=== PATIENT | female | born 2000 | race Caucasian/White ===

== ENCOUNTER 2022-01-24 08:25 | Outpatient (CLI) | payer OTHER ==
[2022-01-24 09:08] VITALS: BP 124/75
--- NOTE | 2022-01-24 09:08 | SLEEP CARE CONSULTATION ---
Information from patient questionnaire entered by Cricket Arguelles MA. I have reviewed and concur with the information entered by Cricket Arguelles MA. This document represents the service I personally performed and the decisions made by , Catalina Reddy ARNP. History of Present Illness Service Date and Time: 01/24/2022 0825 Reason for Visit: New patient (ONSET 12/2019, NO PRIORS,) Accompanied by: Mother Chief Complaint: reports: Unrefreshed sleep, Snoring, Excessive daytime sleepiness, Fatigue, Frequent awakenings at night Date of Onset: 2 YEARS Usual bedtime: 1100 PM Time it takes to fall asleep: 45 MINUTES Snores at night: Yes Observed to quit breathing while asleep: Yes Sleeps alone due to snoring: No Number of times waking at night: 1-2 Reasons for waking at night: reports: Snoring (sometimes), Other (unknown reason). denies: Choking, Gasping for air Toss, Turn, or Twitch while sleeping: Yes Recalls having dreams: Yes Usually gets out of bed at: 0730 Feels refreshed in the morning: No Morning headache: No Sleepy or fatigued during the day: Yes Ever fallen asleep while driving: No Takes day naps: No Dreams during day naps: Yes Prior sleep studies: No Additional HPI information: I had the pleasure of seeing YEE PEREZ today regarding the possibility of her having a sleep disorder. Her current complaints are fatigue, frequent night awakenings, snoring and unrefreshed sleep. She is accompanied by her mother today. She states she has been told she snores very loudly. Her mother has sleep apnea. She has been heard to kind of choke in her sleep. She states she does not feel rested in the mornings. - Parasomnia Symptoms Ever been unable to move upon waking from sleep: No Walks in sleep: Yes (when younger) Talks in sleep: No Ever acted out dreams in sleep: No Ever felt weak in the knees when startled or emotional: No Bothered by creepy, crawly, restless sensations in legs: No Problems with memory or concentration: Yes ( Concentration) Subjective Initial [place] Sleepiness Scale score: 3 (2021) Past Medical History Past Medical History: reports: Anxiety, Depression Social History The patient's occupation is a [employer]. Patient is Single and lives in [place]. Have you smoked in the past 12 months: No Alcohol use: No Caffeine use: Yes Caffeine amount and frequency: 1 X DAILY Family History Family history of sleep disordered breathing: Yes Family Hx Sleep Apnea: Mother: Snoring, Sleep apnea - Treated, Sibling: Snoring, Grandparent: Snoring Allergies and Home Medications Known drug allergies: No Drug allergies reviewed: Yes Home medication list reviewed: Yes Allergy and home medication list: Allergies No Known Drug Allergies Allergy (Verified 11/18/15 15:12) Medication: Venlafaxine Multivitamin Vitamin D Review of Systems Weight gain over past 5 years: 50 Weight loss over past 5 years: 22 Cardiovascular: denies: high blood pressure Gastrointestinal: denies: heartburn Neurological: denies: seizure, head trauma Psychiatric: reports: anxiety, depression Ear/Nose/Throat: reports: wisdom teeth removed. denies: injury to nose, tonsillectomy Immunologic: reports: allergies to food or environment (seasonal allergies) Physical Exam Vital signs obtained and entered by: CHIQUI Arguelles Blood Pressure: 124/75 (RIGHT, PULSE 129, RESP 20,) Cuff size: wrist Heart Rate: 120 O2 Saturation: 97 (WITH PAPER MASK) Height: 5 ft 6 in Weight: 212 lb (WITH COTHES) Body Mass Index: 34.2 BMI Classification: Obese Neck circumference: 14.25 (inches) Nostrils: patent to airflow Mouth and throat: narrow oropharynx Soft palate: long Hard palate: normal Uvula: normal Uvula visualization: 50% Mallampati Class II Tongue: enlarged in size with teeth glass on lateral edges Tonsils: 2+ Neck: normal w/o lymphadenopathy or thyromegaly Heart: regular rate and rhythm Lungs: clear bilaterally Impression and Plan 1. Suspected Obstructive Sleep Apnea-Hypopnea Syndrome, as suggested by a history of loud and irregular snoring, observed cessation of breath while asleep, gasping or choking in sleep, unrefreshed sleep, and cognitive impairment. Narrow oropharynx and obesity are common predisposing factors for obstructive sleep apnea-hypopnea syndrome. I recommend proceeding to polysomnography to confirm the diagnosis and to assess severity. If the patient has significant sleep disordered breathing, a manual CPAP titration study will also be performed to find the optimal treatment pressure. I informed the patient of what the sleep studies involve and after some discussion, obtained agreement to proceed. The pathophysiology of obstructive sleep apnea-hypopnea syndrome was discussed with the patient and health risks of cardiovascular and cerebrovascular disease if not treated. Risks of drowsy driving discussed in detail and patient advised to avoid long distance driving and to washing machine loader and puller at the first sign of drowsiness. Patient agreed to plan. * Schedule polysomnography +- manual CPAP titration study and return in 1-2 weeks after the study to discuss result and initiate therapy. * Avoid long distance driving or driving when feeling sleepy. * Avoid alcohol, sedative and muscle relaxant around bedtime. * Attempt to lose weight. * Review instructions provided by trained office staff on how to prepare for the sleep study. * Return for follow-up after sleep study completed. Counseling Topics: Weight loss health impact Visit Type: In Office Other Participants: Other (Mother) Time Spent with Patient (minutes): 31 Provider Statement: I spent 100% of the Face to Face Visit with the patient with greater than 50% spent counseling the patient and coordination of care.
== END 2022-01-24 08:26 | disposition home or self-care (01) ==
LOC: SC 08:25
PROVIDERS: ATTEND Nurse Practitioner Family
DX: R06.83 Snoring (principal); R06.81 Apnea, not elsewhere classified; G47.8 Other sleep disorders; R41.89 Other symptoms and signs involving cognitive functions and awareness; E66.9 Obesity, unspecified; Z68.34 Body mass index [BMI] 34.0-34.9, adult
CPT/HCPCS: 99203; 99212

== ENCOUNTER 2022-02-06 08:25 | Outpatient (CLI) | payer OTHER | END 2022-02-06 08:26 | disposition home or self-care (01) | LOC: SC 08:25 | PROVIDERS: ATTEND Nurse Practitioner Family | DX: G47.33 Obstructive sleep apnea (adult) (pediatric) (principal); R09.02 Hypoxemia; F32.A Depression, unspecified | CPT/HCPCS: 95806 ==

== ENCOUNTER 2022-02-22 13:03 | Outpatient (CLI) | payer OTHER ==
[2022-02-22 13:49] VITALS: BP 127/70
--- NOTE | 2022-02-22 13:49 | SLEEP CARE CONSULTATION ---
Information from patient questionnaire entered by Cricket Arguelles MA. I have reviewed and concur with the information entered by Cricket Arguelles MA. This document represents the service I personally performed and the decisions made by Maureen ca Caren J, ARNP. History of Present Illness Service Date and Time: 02/22/2022 1303 Accompanied by: Mother Initial [place] Sleepiness Scale score: 3 (2021) Current [place] Sleepiness Scale score: 7 (02/12) Additional HPI information: YEE PEREZ returns for follow up and results of the recently performed home sleep study. I explained the pathophysiology behind obstructive sleep apnea. We then spent quite a bit of time discussing different treatment options. For mild obstructive sleep apnea, surgery and oral appliance are alternatives to nasal CPAP therapy but in moderate or severe cases, nasal CPAP is the most effective and reliable treatment. Because apnea is primarily in supine position, then positional management therapy could be effective. Methods discussed such as positioning with pillows to prevent supine sleep. I reviewed the impact of weight changes on sleep apnea and strongly recommended losing weight. Patient was cautioned about risks of drowsy driving until sleepiness symptoms resolve. Sleep Study - Results Type of Sleep Study: Home sleep study (F/U HOME STUDY, 02/06/22 [facility],) Prior sleep studies: No Polysomnography/Home Sleep Study results: Physician Impression: The quality of the study is good. The length of the study is adequate (> 240 minutes). Please also see the tabulated and graphic data. 1. Obstructive Sleep Apnea-Hypopnea (ICD-10 G47.33), moderate, with an AHI of 15.8/hr and caitlin SaO2 of 88%. During the study, the patient had 14 apneas (14 obstructive, 0 central, 0 mixed) and 53 hypopneas. The longest episode lasted 100.0 seconds. The patient only slept supine during this study (supine AHI was 15.8 and non-supine, 0.00). 2. Hypoxemia (ICD-10 R09.02), minimal, with the lowest oxygen saturation of 88 % and 0.3 minutes with SaO2 under 90%. Baseline oxygen saturation was normal (Average oxygen saturation was 96%). Allergies and Home Medications Home medication list reviewed: Yes (no changes) Allergy and home medication list: Allergies No Known Drug Allergies Allergy (Verified 11/18/15 15:12) Review of Systems Review of systems same as previous: Yes (no changes) Physical Exam Vital signs obtained and entered by: JAROD RYAN Blood Pressure: 127/70 (PULSE 115, RESP 20, RIGHT, ) Heart Rate: 127 O2 Saturation: 94 (PAPER) Height: 5 ft 6 in Weight: 0 oz (DOES NOT WANT TO BE WEIGHED IN FRONT OF MOM. ) Body Mass Index: 0.0 BMI Classification: Underweight Impression and Plan 1. Obstructive Sleep Apnea-Hypopnea Syndrome, moderate, with lowest oxygen saturation of 88%. Obviously this is the cause of the patients symptoms of unrefreshed sleep, and excessive daytime sleepiness. Positive pressure therapy could benefit anxiety and depression. I reviewed with patient and her mother her options for treatment and she would like to take some time to talk to her parents and will call with her decision on which therapy she would like to start. Compliance guidelines also reviewed for CPAP therapy. Because the apnea is more severe supine, I instructed to avoid sleeping supine using pillow positioning until able to start CPAP use. 2. Hypoxemia, minimal, with the lowest oxygen saturation of 88 % and 0.3 minutes with SaO2 under 90%. Her baseline oxygen saturation was normal with an average oxygen saturation of 96%. * Patient to call with her choice of therapy which will determine her follow up * Attempt to lose weight. * Avoid supine sleep * The patient is again cautioned about driving until sleepiness completely resolves. Counseling Topics: Weight loss health impact Visit Type: In Office Other Participants: Other (Mother) Time Spent with Patient (minutes): 20 Provider Statement: I spent 100% of the Face to Face Visit with the patient with greater than 50% spent counseling the patient and coordination of care.
== END 2022-02-22 13:04 | disposition home or self-care (01) ==
LOC: SC 13:03
PROVIDERS: ATTEND Nurse Practitioner Family
DX: G47.33 Obstructive sleep apnea (adult) (pediatric) (principal); R09.02 Hypoxemia
CPT/HCPCS: 99212; 99213

== ENCOUNTER 2022-08-29 15:27 | Outpatient (CLI) | payer OTHER ==
[2022-08-29 18:09] LABS: THYROID STIMULATING HORMONE 4.77 uIU/mL (0.34-5.60)
== END 2022-08-29 15:28 | disposition home or self-care (01) ==
LOC: LAB.N 15:27
PROVIDERS: ATTEND Physician Assistant
DX: F41.1 Generalized anxiety disorder (principal)
CPT/HCPCS: 36415; 84443

== ENCOUNTER 2023-03-07 11:25 | Outpatient (CLI) | payer OTHER ==
--- NOTE | 2023-03-07 11:21 | SLEEP CARE CONSULTATION ---
Information from patient questionnaire entered by Alicia Gonsalves. I have reviewed and concur with the information entered by Alicia Gonsalves. This document represents the service I personally performed and the decisions made by , Catalina Reddy ARNP. History of Present Illness Service Date and Time: 03/07/2023 1100 Previous diagnosis: Moderate, Obstructive Sleep Apnea-Hypopnea Syndrome AHI: 15.8 (in 2021) Reason for follow up: annual (LAST SEEN 06/2022) Equipment type: CPAP (RESMED Airsense 11, s/u 06/2022) Equipment obtained from: Other ([facility], got initial supplies) Mask style: Nasal Backup mask available: No (will keep old mask when replaced) Last cushion change: 1 week Prior sleep studies: No Type of Sleep Study: Home sleep study (F/U HOME STUDY, 02/06/22 [facility],) HPI additional information: YEE PEREZ was diagnosed to have moderate, AHI 15.8, obstructive sleep apnea- hypopnea syndrome and returns via video telehealth visit today for CPAP therapy first compliance and annual follow-up. Sleep Study - Results Type of Sleep Study: Home sleep study (F/U HOME STUDY, 02/06/22 [facility],) Prior sleep studies: No CPAP Compliance Data - Data Reviewed with Patient Average duration of nightly device use: 4 HRS 59 MINS Compliance rate %: 72 (09/07/22-03/05/23; 178/180 days used) Current pressure setting (cmH2O): 4-15 (median 5.9, avg 7.7, max 8.8) Average residual AHI: 0.7 Central apnea: 0.3 Obstructive apnea: 0.2 Hypopnea: 0.1 Subjective Missed days of use due to: reports: other (fall asleep without mask on) Patient concerns: denies: aerophagia, mask discomfort, air blowing in eyes, mask leak noise, condensation in mask/hose, nasal congestion, dry mouth, nose, throat, epistaxis Observed to snore while using device: No Current pressure setting perceived as: comfortable On therapy, patient: reports: sleeping better, awakening more refreshed, being more awake and alert during the day, more rested overall. denies: drowsiness while driving Initial [place] Sleepiness Scale score: 3 (2021) Current [place] Sleepiness Scale score: 3 Allergies and Home Medications Known drug allergies: No Drug allergies reviewed: Yes Home medication list reviewed: Yes (Venlafaxine 150 mg + 37.5 mg, daily) Allergy and home medication list: Allergies No Known Drug Allergies Allergy (Verified 03/06/23 14:29) Review of Systems Review of systems same as previous: Yes (no changes) Physical Exam Vital signs obtained and entered by: DIVYA Lynne Height: 5 ft 6 in Weight: 220 lb (per pt) Body Mass Index: 35.5 BMI Classification: Obese Impression and Plan 1. Obstructive Sleep Apnea-Hypopnea Syndrome, moderate, with good treatment compliance and good apnea control. On CPAP therapy, the patient has better sleep quality and is more rested overall. Patient has been compliant with her CPAP since she started using it. Patient has significant improvement of their sleep apnea and is satisfied with current CPAP therapy. Patient denies problems with oral dryness, nasal congestion, epistaxis, skin irritation or aerophagia. The patients pressure will be changed to autoCPAP 6-9 cmH20 to reflect pressures being used. Patient advised to contact me if pressure change is uncomfortable so that it can be adjusted. Goals for apnea control discussed. Patient's apnea severity and rationale for treatment to reduce apnea, improve sleep quality and reduce cardiovascular and cerebrovascular events was reviewed. I also reviewed the benefit of consistent device use of CPAP for depression/anxiety. 2. Obesity, unspecified. Currently patients BMI is 35.5. Obesity increases the risk of apnea, CPAP pressure requirements and overall health risks especially cardiovascular and diabetes. Thus patient is advised to lose weight. * Change auto CPAP pressure to 6-9 cmH2O * Notify me if snoring with mask or feeling that the pressure is too much or too little * Attempt to lose weight * Call this office if any problems using CPAP * Return for follow up in 1 year, or sooner if concerns arise Counseling Topics: Spare mask, Weight loss health impact Visit Type: Telehealth Video Video Type: [facility] Location of Provider: Office Patient agrees and consents to this telehealth visit type: Yes Patient agrees to have their insurance billed: Yes Time Spent with Patient (minutes): 21 Provider Statement: I spent 100% of the Telehealth Video Call with the patient with greater than 50% spent counseling the patient and coordination of care.
== END 2023-03-07 11:26 | disposition home or self-care (01) ==
LOC: SC 11:25
PROVIDERS: ATTEND Nurse Practitioner Family
DX: G47.33 Obstructive sleep apnea (adult) (pediatric) (principal); E66.9 Obesity, unspecified; Z68.35 Body mass index [BMI] 35.0-35.9, adult

== ENCOUNTER 2023-07-25 11:48 | Outpatient (CLI) | payer OTHER ==
--- NOTE | 2023-07-25 16:45 | XRAY Report ---
PROCEDURE: Ankle 3 View RT INDICATIONS: SPRAIN OF OTHER LIGAMENT RIGHT ANKLE INITAL ENCOUN TECHNIQUE: 3 views of the ankle were acquired. COMPARISON: None. FINDINGS: Bones: No fractures or dislocations. Ankle mortise is normally aligned. No suspicious bony lesions . Soft tissues: No tibiotalar joint effusion. Achilles tendon appears normal. IMPRESSION: No acute bony abnormality. Reviewed by: Lenard Burnett MD on 07/25/2023 3:44 PM AKDT Approved by: Lenard Burnett MD on 07/25/2023 3:44 PM AKDT Station ID: [id number]
== END 2023-07-25 11:49 | disposition home or self-care (01) ==
LOC: DI 11:48
PROVIDERS: ATTEND Family Medicine
DX: S93.491A Sprain of other ligament of right ankle, initial encounter (principal)

== ENCOUNTER 2023-12-01 13:45 | Outpatient (CLI) | payer OTHER ==
[2023-12-01 17:49] LABS: BASOPHILS % (AUTO) 0.6 %; EOSINOPHILS % (AUTO) 0.8 %; HCT - HEMATOCRIT 42.1 % (37.0-47.0); HGB - HEMOGLOBIN 13.4 g/dL (12.0-16.0); LYMPHOCYTES # (AUTO) 1.7 10^3/uL (1.5-3.5); LYMPHOCYTES % (AUTO) 32.8 %; MEAN CORPUSCULAR HEMOGLOBIN 24.6 pg (27.0-31.0); MEAN CORPUSCULAR HGB CONC 31.8 g/dL (32.0-36.0); MEAN CORPUSCULAR VOLUME 77.2 fL (81.0-99.0); MEAN PLATELET VOLUME 9.2 fL (7.9-10.8); MONOCYTES # (AUTO) 0.3 10^3/uL (0.0-1.0); MONOCYTES % (AUTO) 5.7 %; NEUTROPHILS # (AUTO) 3.2 10^3/uL (1.5-6.6); NEUTROPHILS % (AUTO) 59.9 %; PLT - PLATELET COUNT 363 10^3/uL (130-450); RED BLOOD COUNT 5.45 10^6/uL (4.20-5.40); RED CELL DISTRIBUTION WIDTH 13.5 % (12.0-15.0); WHITE BLOOD COUNT 5.3 x10^3/uL (4.8-10.8)
[2023-12-01 18:08] LABS: HCG,QUALITATIVE BLOOD NEGATIVE
[2023-12-01 18:09] LABS: ALBUMIN 4.4 g/dL (3.2-5.5); ALBUMIN/GLOBULIN RATIO 1.5 (1.0-2.2); ALKALINE PHOSPHATASE 77 IU/L (42-121); ALT ALANINE AMINOTRANSFERASE 20 IU/L (10-60); AMYLASE 40 U/L (28-100); AST ASPARTATE AMINOTRANSFERASE 18 IU/L (10-42); BILIRUBIN,TOTAL 0.3 mg/dL (0.2-1.0); BUN - BLOOD UREA NITROGEN 11 mg/dL (6-20); CALCIUM 9.7 mg/dL (8.5-10.3); CARBON DIOXIDE - CO2 30 mmol/L (21-32); CHLORIDE 103 mmol/L (101-111); CREATININE 0.7 mg/dL (0.6-1.3); GFR - MDRD 103 (>89); GLUCOSE 109 mg/dL (74-104); LIPASE 19 U/L (11-82); POTASSIUM 3.5 mmol/L (3.5-4.5); SODIUM 140 mmol/L (135-145); TOTAL PROTEIN 7.4 g/dL (6.4-8.9)
== END 2023-12-01 14:00 | disposition home or self-care (01) ==
LOC: LAB.N 13:45
PROVIDERS: ATTEND Nurse Practitioner
DX: R11.10 Vomiting, unspecified (principal)
CPT/HCPCS: 36415; 80053; 82150; 83690; 84703; 85025

== ENCOUNTER 2024-03-25 12:46 | Outpatient (CLI) | payer OTHER ==
--- NOTE | 2024-03-25 13:03 | Sleep Patient Instructions ---
Sleep Center Visit Summary - Patient Visit Information Reason for Visit: Annual follow-up - Patient Instructions Additional Instructions: You will continue with CPAP therapy with pressure set at 6-9 cmH2O. A supply prescription will be updated with your DME. We encourage you to continue to try to lose weight. Please follow up with the sleep care office in 1 year. - Clinic Information Contact: [facility] [address] [place] [address] [email or web address] T: [phone]
--- NOTE | 2024-03-25 13:06 | SLEEP CARE CONSULTATION ---
Information from patient questionnaire entered by Sabino Gonsalves. I have reviewed and concur with the information entered by Sabino Gonsalves. This document represents the service I personally performed and the decisions made by , Catalina Reddy ARNP. History of Present Illness Service Date and Time: 03/25/2024 1246 Previous diagnosis: Moderate, Obstructive Sleep Apnea-Hypopnea Syndrome AHI: 15.8 (in 2021) Reason for follow up: annual (LAST SEEN 02/2023) Equipment type: CPAP (RESMED Airsense 11, s/u 06/2022) Equipment obtained from: Other ([facility], getting supplies) Mask style: Nasal pillows Backup mask available: No (needs supplies) Last cushion change: 1 week Prior sleep studies: No Type of Sleep Study: Home sleep study (F/U HOME STUDY, 02/06/22 [facility],) HPI additional information: YEE PEREZ was diagnosed to have moderate, AHI 15.8, obstructive sleep apnea- hypopnea syndrome and returned today for CPAP therapy annual follow-up. Sleep Study - Results Type of Sleep Study: Home sleep study (F/U HOME STUDY, 02/06/22 [facility],) Prior sleep studies: No CPAP Compliance Data - Data Reviewed with Patient Average duration of nightly device use: 5 HRS 23 MINS Compliance rate %: 81 (03/24/23-03/22/24; 354/365 days used) Current pressure setting (cmH2O): 6-9 Average residual AHI: 0.8 Central apnea: 0.3 Obstructive apnea: 0.4 Average large leak: 2.4 L/min Subjective Missed days of use due to: reports: other (layed down without mask) Patient concerns: denies: aerophagia, mask discomfort, air blowing in eyes, mask leak noise, condensation in mask/hose, nasal congestion, dry mouth, nose, throat, epistaxis Observed to snore while using device: No Current pressure setting perceived as: comfortable On therapy, patient: reports: sleeping better, awakening more refreshed, being more awake and alert during the day, more rested overall. denies: drowsiness while driving Initial [place] Sleepiness Scale score: 3 (2021) Current [place] Sleepiness Scale score: 3 (03/25/24) Allergies and Home Medications Known drug allergies: No Drug allergies reviewed: Yes Home medication list reviewed: Yes (no changes) Allergy and home medication list: Allergies No Known Drug Allergies Allergy (Verified 03/23/24 10:11) Review of Systems Review of systems same as previous: Yes (NO CHANGE) Physical Exam Vital signs obtained and entered by: SABINO Sears MA Blood Pressure: 151/98 (RIGHT ARM) Cuff size: regular Heart Rate: 100 O2 Saturation: 100 Height: 5 ft 6 in Weight: 242 lb Body Mass Index: 39.0 BMI Classification: Obese Impression and Plan 1. Obstructive Sleep Apnea-Hypopnea Syndrome, moderate, with good treatment compliance and good apnea control. On CPAP therapy, the patient has better sleep quality and is more rested overall. Patient has significant improvement of their sleep apnea and is satisfied with current CPAP therapy. Patient denies problems with oral dryness, nasal congestion, epistaxis, skin irritation or aerophagia. Patient's apnea severity and rationale for treatment to reduce apnea, improve sleep quality and reduce cardiovascular and cerebrovascular event s was reviewed. I also reviewed the benefit of consistent device use of CPAP for depression/anxiety. 2. Obesity, unspecified. Currently patients BMI is 39. Obesity increases the risk of apnea, CPAP pressure requirements and overall health risks especially cardiovascular and diabetes. Thus patient is advised to lose weight. * Continue auto CPAP pressure at 6-9 cmH2O * Update supply prescription * Notify me if snoring with mask or feeling that the pressure is too much or too little * Attempt to lose weight * Call this office if any problems using CPAP * Return for follow up in 12 months, or sooner if concerns arise Counseling Topics: Spare mask, Weight loss health impact Prescriptions: Device supplies Follow up with Sleep Care in: 1 year Visit Type: In Office Time Spent with Patient (minutes): 13 Provider Statement: I spent 100% of the Face to Face Visit with the patient with greater than 50% spent counseling the patient and coordination of care.
[2024-03-25 13:15] VITALS: BP 151/98; O2SAT 100
== END 2024-03-25 12:47 | disposition home or self-care (01) ==
LOC: SC 12:46
PROVIDERS: ATTEND Nurse Practitioner Family
DX: G47.33 Obstructive sleep apnea (adult) (pediatric) (principal); E66.9 Obesity, unspecified; Z68.39 Body mass index [BMI] 39.0-39.9, adult
CPT/HCPCS: 99212